=== PATIENT | male | born 1995 | race Caucasian/White ===

== ENCOUNTER 2021-03-31 15:29 | Emergency (ER) | payer SELFPAY ==
--- NOTE | ~2021-03-31 | XR_ITS ---
XR knee LT 3V 03/31/2021 16:00 Indication: Left knee pain Procedure: 3 views left knee Comparison: No prior studies for comparison. Findings: No fracture, subluxation or dislocation. No significant joint space narrowing. No joint eff usion. Impression: 1: No acute bone or joint abnormality. Reviewed, dictated and finalized at location B. TOLOGY TECHNOLOGIST Impression: 1: No acute bone or joint abnormality.
[2021-03-31 15:32] VITALS: BP 132/76; PULSE 96; RESP 18; TEMP 36.4; O2SAT 100
--- NOTE | 2021-03-31 15:45 | ED.LOWEXIN ---
HPI - Extremity Injury (Lower) General Chief Complaint: Extremity Injury, Lower Stated Complaint: Left Leg complaint Time Seen by Provider: 03/31/21 15:41 History of Present Illness HPI Narrative: 25-year-old male presents emergency room with acute onset of left knee pain. Patient states he was hiking in his left foot got caught into a tree root, stated he fell to the side and while his foot was stuck, his knee twisted. States pain is located on the medial side of his left knee. Patient states he is able to ambulate but with some pain. States pain is dull and aching, more painful when he attempts to fully extend the knee. Related Data Home Medications Medication Instructions Recorded Confirmed No Home Medications 03/31/21 03/31/21 Allergies Allergy/AdvReac Type Severity Reaction Status Date / Time No Known Allergies Allergy Verified 03/31/21 15:34 Review of Systems Review of Systems: CONSTITUTIONAL: Denies fever, chills, or sweats. EYES: Denies visual changes, redness, or discharge. ENT: Denies rhinorrhea, congestion, sore throat, or otalgia. CARDIOVASCULAR: Denies chest pain, palpitations, or edema. RESPIRATORY: Denies cough or dyspnea. GASTROINTESTINAL: Denies abdominal pain, nausea, vomiting, or diarrhea. GENITOURINARY: Denies dysuria or hematuria. SKIN: Denies rash or itching. MUSCULOSKELETAL: Denies back pain, myalgia. Left knee pain NEUROLOGIC: Denies headache, numbness, dizziness, or weakness. PSYCHIATRIC: Denies anxiety or depression. Exam Narrative: GENERAL: Well-appearing, well-nourished, and in no acute distress. HEAD: Normocephalic, atraumatic. EYES: PERRLA and EOMI. ENT: Nares clear, no rhinorrhea or epistaxis. Mucous membranes moist. Oropharynx without tonsillar hypertrophy exudate or other lesions. Bilateral TMs pearly martínez nonbulging NECK: Supple. No adenopathy or masses. No carotid bruits or JVD CHEST: Clear to auscultation. No respiratory distress. No wheezes rales or rhonchi HEART: Regular rate and rhythm. No murmur heard. Normal peripheral pulses. ABDOMEN: Soft, nontender, nondistended, normal active bowel sounds. EXTREMITIES: Normal range of motion. No edema. Left knee: tender to palpation to medial surface of anterior knee, with associated soft tissue swelling and ecchymosis. No joint laxity. Negative Yari's test. Pain with full extension. Negative anterior posterior drawer tests. Neurovascular is distally intact SKIN: Warm, dry, no rash. NEURO: No focal deficits. Alert and oriented x3. PSYCH: Normal mood and affect. Course Course Emergency Course: Left knee x-ray demonstrated no acute abnormalities. Will place patient in a soft knee immobilizer Vital Signs Vital signs: Vital Signs Temperature 36.4 C 03/31/21 15:32 Pulse Rate 96 03/31/21 15:32 Respiratory Rate 18 03/31/21 15:32 Blood Pressure 132/76 03/31/21 15:32 Pulse Oximetry 100 03/31/21 15:32 Temperature 36.4 C 03/31/21 15:32 Pulse Rate 96 03/31/21 15:32 Respiratory Rate 18 03/31/21 15:32 Blood Pressure 132/76 03/31/21 15:32 Pulse Oximetry 100 03/31/21 15:32 Discharge Plan Discharge Clinical Impression: Acute internal derangement of knee Patient Disposition: Home, Self-Care Condition: Stable Instructions: Antibiotic Form Additional Instructions: Wear knee immobilizer for comfort. Tylenol or ibuprofen as needed for pain. Recommend ice for the first 48 hours then replaced with heat. Follow-up with orthopedics in 7 to 10 days as needed. Prescriptions: No Action No Home Medications RF: 0 Follow-up/Referrals: Augusto Sherman MD [Primary Care Provider] - Time of Disposition: 16:15
== END 2021-03-31 16:58 | disposition home or self-care (01) ==
LOC: ANHED 16:52
PROVIDERS: Emergency Provider Nurse Practitioner Family; PCP Family Medicine
DX: M23.92 Unspecified internal derangement of left knee (principal); S89.92XA Unspecified injury of left lower leg, initial encounter; X50.9XXA Other and unspecified overexertion or strenuous movements or postures, initial encounter
CPT/HCPCS: 73562; 99283